=== PATIENT | female | born 1945 | race Caucasian/White ===

== ENCOUNTER 2021-06-15 15:01 | Emergency (ER) | payer OTHER, MEDICARE, MEDICAID ==
[2021-06-15] MEDS ORDERED: Lorazepam 1 MG TAB ONE (16:09)
[2021-06-15] MEDS ORDERED: Gabapentin 300 MG CAP ONE (16:20)
[2021-06-15] MEDS ORDERED: Dexamethasone 4 MG TAB ONE (17:35)
== END 2021-06-15 19:20 | disposition home or self-care (01) ==
LOC: CSHERS 15:01
DX: S10.93XA Contusion of unspecified part of neck, initial encounter (principal); G62.9 Polyneuropathy, unspecified; I10 Essential (primary) hypertension; E78.00 Pure hypercholesterolemia, unspecified; V47.0XXA Car driver injured in collision with fixed or stationary object in nontraffic accident, initial encounter; Z95.0 Presence of cardiac pacemaker
CPT/HCPCS: 70450; 72125; J8540

== ENCOUNTER 2022-06-03 19:40 | Emergency (ER) | payer OTHER, MEDICARE ==
[2022-06-03] MEDS ORDERED: Acetaminophen 500 MG TAB ONE (22:05)
[2022-06-03] MEDS ORDERED: Bacitracin 1 PK ONE (22:11)
[2022-06-03] MEDS ORDERED: Doxycycline 100 MG CAP PO SCH (23:30)
[2022-06-03] MEDS ORDERED: Boostrix 0.5 ML (Tdap) VIAL (>/=7 yrs of age) ONE (23:40)
== END 2022-06-04 00:08 | disposition home or self-care (01) ==
LOC: CSHERS 19:40
DX: S40.022A Contusion of left upper arm, initial encounter (principal); S30.0XXA Contusion of lower back and pelvis, initial encounter; S10.96XA Insect bite of unspecified part of neck, initial encounter; W06.XXXA Fall from bed, initial encounter; W57.XXXA Bitten or stung by nonvenomous insect and other nonvenomous arthropods, initial encounter; J44.9 Chronic obstructive pulmonary disease, unspecified
CPT/HCPCS: 72072; 72100; 90471; 90715

== ENCOUNTER 2022-06-20 12:15 | Outpatient (CLI) | payer MEDICARE, OTHER, MEDICAID | END 2022-06-20 12:16 | disposition home or self-care (01) | LOC: CSHRAD 12:15 | PROVIDERS: ATTEND Physician Assistant | DX: M54.12 Radiculopathy, cervical region (principal); M54.16 Radiculopathy, lumbar region; R29.898 Other symptoms and signs involving the musculoskeletal system; Z98.1 Arthrodesis status; M48.02 Spinal stenosis, cervical region; M47.812 Spondylosis without myelopathy or radiculopathy, cervical region; M47.816 Spondylosis without myelopathy or radiculopathy, lumbar region; Z98.890 Other specified postprocedural states | CPT/HCPCS: 62305; 72050; 72126; 72132 ==

== ENCOUNTER 2022-07-01 12:32 | Emergency (ER) | payer MEDICARE, OTHER, MEDICAID ==
[2022-07-01] MEDS ORDERED: Ondansetron PF 4 MG/2 ML Vial ONE (13:22)
[2022-07-01] MEDS ORDERED: Morphine 4 MG/ML VIAL ONE (13:22)
[2022-07-01 13:46] LABS: #Basophils 0.1 10x3/uL (0.0-0.2); #Eosinphils 0.1 10x3/uL (0.0-0.5); #Monocytes 0.3 10x3/uL (0.0-1.1); #Neutrophils 2.7 10x3/uL (1.5-8.4); %Basophils 1.1 % (0.0-2.0); %Eosinophils 1.7 % (0.0-6.0); %Monocytes 4.9 % (0.0-10.0); %Neutrophils 51.1 % (40.0-75.0); Hemoglobin 14.8 g/dL (12.0-15.5); Mean Corpuscular Hemoglobin 29.8 pg (27.0-33.0); Mean Corpuscular Volume 87.5 fl (81.6-98.3); Mean Platelet Volume 11.8 fl (7.4-10.4); Platelet Count 134 10x3/uL (150-450); RBC Distribution Width 13.6 % (11.5-14.5); Red Blood Cell (RBC) Count 4.97 10x6/uL (3.90-5.03); White Blood Cell (WBC) Count 5.1 10x3/uL (3.5-10.5)
[2022-07-01 13:54] LABS: PTT 25.3 sec (22.0-33.0)
[2022-07-01 13:58] LABS: ALT (SGPT) 14 U/L (8-55); AST (SGOT) 23 U/L (5-34); Alkaline Phosphatase 68 U/L (40-110); Anion Gap 11 mmol/L (10-20); BUN (Urea Nitrogen) 12 mg/dL (9.8-20.1); Bilirubin, Total 0.6 mg/dL (0.2-1.2); Calc. Creatinine Clearance 0 mL/min (70-130); Calcium 8.7 mg/dL (7.8-10.44); Carbon Dioxide 20 mmol/L (23-31); Chloride 112 mmol/L (98-107); Estimated GFR 78; Globulin 2.5 g/dL (2.4-3.5); Glucose 85 mg/dL (83-110); Potassium 3.8 mmol/L (3.5-5.1); Protein, Total 6.5 g/dL (5.8-8.1); Sodium 139 mmol/L (136-145)
[2022-07-01 14:50] LABS: Bilirubin Neg (Negative); Blood, Urine Negative (Negative); Clarity Clear (Clear); Glucose, Urine (Dipstick) Normal (Negative); Ketone, Urine Negative (Negative); Leukocyte 25 (Negative); Nitrite Negative (Negative); Protein, Urine (Dipstick) Negative (Neg-Trace); Urobilinogen Normal mg/dL (Less than 2)
[2022-07-01 15:15] LABS: Bacteria/HPF 2+ HPF (None Seen); RBC/HPF 0-3 HPF (0-3); Squamous Epithelial 0-3 HPF (0-3); WBC/HPF 0-3 HPF (0-3)
== END 2022-07-01 15:29 | disposition home or self-care (01) ==
LOC: CSHERS 12:32
DX: M54.50 Low back pain, unspecified (principal); M54.6 Pain in thoracic spine; M25.552 Pain in left hip; J44.9 Chronic obstructive pulmonary disease, unspecified; W18.30XA Fall on same level, unspecified, initial encounter
CPT/HCPCS: 71045; 72128; 72131; 80053; 81003; 81015; 85025; 85610; 85730; 96374; 96375; J2270; J2405

== ENCOUNTER 2022-07-17 13:18 | Emergency (ER) | payer MEDICARE, OTHER, MEDICAID ==
[2022-07-17] MEDS ORDERED: Morphine 4 MG/ML VIAL ONE (14:16)
[2022-07-17 14:38] LABS: SARS-CoV-2 NAA Rapid Test Not Detected (NotDetected)
[2022-07-17 14:59] LABS: ALT (SGPT) 17 U/L (8-55); AST (SGOT) 26 U/L (5-34); Albumin 4.5 g/dL (3.4-4.8); Alkaline Phosphatase 80 U/L (40-110); Anion Gap 14 mmol/L (10-20); BUN (Urea Nitrogen) 11 mg/dL (9.8-20.1); Bilirubin, Total 0.9 mg/dL (0.2-1.2); Calc. Creatinine Clearance 0 mL/min (70-130); Calcium 9.2 mg/dL (7.8-10.44); Carbon Dioxide 20 mmol/L (23-31); Chloride 106 mmol/L (98-107); Estimated GFR 82; Glucose 104 mg/dL (83-110); Lipase 38 U/L (8-78); Potassium 3.9 mmol/L (3.5-5.1); Protein, Total 7.5 g/dL (5.8-8.1); Sodium 136 mmol/L (136-145)
[2022-07-17 15:09] LABS: #Basophils 0.1 10x3/uL (0.0-0.2); #Monocytes 0.2 10x3/uL (0.0-1.1); #Neutrophils 6.5 10x3/uL (1.5-8.4); %Basophils 0.6 % (0.0-2.0); %Eosinophils 0.4 % (0.0-6.0); %Lymphocytes 18.4 % (18.0-47.0); %Monocytes 2.6 % (0.0-10.0); %Neutrophils 77.6 % (40.0-75.0); Hemoglobin 16.5 g/dL (12.0-15.5); Mean Corpuscular HGB CONC 34.2 g/dL (32.0-36.0); Mean Corpuscular Hemoglobin 30.1 pg (27.0-33.0); Mean Corpuscular Volume 88.1 fl (81.6-98.3); Mean Platelet Volume 12.2 fl (7.4-10.4); Platelet Count 156 10x3/uL (150-450); RBC Distribution Width 13.1 % (11.5-14.5); Red Blood Cell (RBC) Count 5.48 10x6/uL (3.90-5.03); White Blood Cell (WBC) Count 8.4 10x3/uL (3.5-10.5)
[2022-07-17 17:54] LABS: Bilirubin Neg (Negative); Blood, Urine 25 (Negative); Clarity Clear (Clear); Glucose, Urine (Dipstick) Normal (Negative); Ketone, Urine 150 mg/dL (Negative); Leukocyte 100 (Negative); Nitrite Negative (Negative); Protein, Urine (Dipstick) 15 mg/dl (Neg-Trace); Specific Gravity, Urine 1.015 (1.005-1.030); Urobilinogen Normal mg/dL (Less than 2); pH, Urine 6.5 (5.0-9.0)
[2022-07-17 18:03] LABS: Bacteria/HPF 1+ HPF (None Seen); RBC/HPF 0-3 HPF (0-3); Renal Epithelial 0-3 HPF (None Seen); Transitional Epithelial 0-3 HPF (None Seen)
[2022-07-17 18:04] LABS: Mucous/LPF Rare LPF (<2+)
[2022-07-17] MEDS ORDERED: Ondansetron PF 4 MG/2 ML Vial ONE (18:39)
[2022-07-17] MEDS ORDERED: Morphine 2 MG/ML VIAL ONE (18:39)
== END 2022-07-17 18:54 | disposition home or self-care (01) ==
LOC: CSHERS 13:18
DX: R11.10 Vomiting, unspecified (principal); J44.9 Chronic obstructive pulmonary disease, unspecified; Z79.899 Other long term (current) drug therapy; Z20.822 Contact with and (suspected) exposure to COVID-19
CPT/HCPCS: 0240U; 80053; 83605; 83690; 84484; 85025; 93005; J2272; 36415; 81003; 81015; 96374; 96375; 96376; J2270; J2405

== ENCOUNTER 2024-03-15 12:26 | Emergency (ER) | payer MEDICARE, OTHER ==
[~2024-03-15 12:26] MED LIST: Iopamidol 370 76% 100 ML VIAL ONE
[2024-03-15 13:08] LABS: Actual Bicarbonate (HCO3v) 25.4 mEq/L (22-28); Analyzer IN Cardio CS ER; Base Excess 1.2 mEq/L (-2 - +2); Calcium, Ionized (venous) 1.17 mmol/L (1.16-1.32); Chloride (VBG) 103 mmol/L (98-106); Critical Notified By: ASANCHEZ; Hematocrit-VBG 48 % (36.0-47.0); Hemoglobin (Hb) 16.4 g/dL (11.7-16.1); Potassium (VBG) 4.17 mmol/L (3.70-5.30); Puncture Site Other Site; RapidComm Collect By LAB.CB1; Sodium 139 mmol/L (133-146)
[2024-03-15 13:13] LABS: #Basophils 0.05 10x3/uL (0.0-0.2); #Eosinphils 0.11 10x3/uL (0.0-0.5); #Monocytes 0.48 10x3/uL (0.0-1.1); #Neutrophils 5.07 10x3/uL (1.5-8.4); %Basophils 0.6 % (0.0-2.0); %Eosinophils 1.3 % (0.0-6.0); %Lymphocytes 30.1 % (18.0-47.0); %Monocytes 5.8 % (0.0-10.0); %Neutrophils 61.8 % (40.0-75.0); Hematocrit 44.5 % (34.9-44.5); Hemoglobin 15.5 g/dL (12.0-15.5); Mean Corpuscular HGB CONC 34.8 g/dL (32.0-36.0); Mean Corpuscular Hemoglobin 30.5 pg (27.0-33.0); Mean Corpuscular Volume 87.4 fL (81.6-98.3); Mean Platelet Volume 11.3 fL (7.4-10.4); Platelet Count 184 10x3/uL (150-450); RBC Distribution Width 13.7 % (11.5-14.5); Red Blood Cell (RBC) Count 5.09 10x6/uL (3.90-5.03); White Blood Cell (WBC) Count 8.2 10x3/uL (3.5-10.5)
[2024-03-15 13:23] LABS: Prothrombin Time 10.9 sec (9.5-12.1)
[2024-03-15] MEDS ORDERED: Ketorolac Tromethamine 30 MG (1 mL) VIAL ONE (13:24)
[2024-03-15 13:29] LABS: ALT (SGPT) 38 U/L (8-55); AST (SGOT) 41 U/L (5-34); Albumin 3.5 g/dL (3.4-4.8); Alkaline Phosphatase 68 U/L (40-110); Anion Gap 12 mmol/L (10-20); BUN (Urea Nitrogen) 16 mg/dL (9.8-20.1); Bilirubin, Total 0.4 mg/dL (0.2-1.2); Calc. Creatinine Clearance 0 mL/min (70-130); Carbon Dioxide 24 mmol/L (23-31); Chloride 105 mmol/L (98-107); Estimated GFR 74; Globulin 3.2 g/dL (2.4-3.5); Glucose 77 mg/dL (83-110); Potassium 4.4 mmol/L (3.5-5.1); Protein, Total 6.7 g/dL (5.8-8.1); Sodium 137 mmol/L (136-145)
[2024-03-15] MEDS ORDERED: Morphine 2 MG/ML VIAL ONE (13:49)
[2024-03-15 14:01] LABS: Bilirubin Neg (Negative); Blood, Urine Negative (Negative); Glucose, Urine (Dipstick) Normal (Negative); Ketone, Urine Negative (Negative); Leukocyte 500 (Negative); Nitrite Negative (Negative); Protein, Urine (Dipstick) 15 mg/dl (Neg-Trace); Urobilinogen Normal mg/dL (Less than 2)
[2024-03-15 14:09] LABS: Amphetamine Not Detected (NotDetected); Barbiturates Screen Not Detected (NotDetected); Benzodiazepine Screen Detected (NotDetected); Cocaine Metabolite Screen Not Detected (NotDetected); Methadone Not Detected (NotDetected); Methamphetamine Not Detected (NotDetected); Opiate Screen Not Detected (NotDetected); Oxycodone Screen Not Detected (NotDetected); Phencyclidine (PCP) Not Detected (NotDetected); THC/Cannabinoid Screen Not Detected (NotDetected); Tricyclic Screen Not Detected (NotDetected)
[2024-03-15 14:12] LABS: Clarity Clear (Clear)
[2024-03-15 14:25] LABS: Bacteria/HPF 3+ HPF (None Seen); CAUTI Indications for Culture Alt mental st,lethar; RBC/HPF 0-3 HPF (0-3); Squamous Epithelial 0-3 HPF (0-3); Urine Culture Reflex No No
[2024-03-15] MEDS ORDERED: Morphine 4 MG/ML VIAL ONE (14:29)
[2024-03-15 15:00] LABS: Acetaminophen Less than 10 mcg/mL (Less than 10); Alcohol Less than 10.0 mg/dL (Less than 10); Salicylate Less than 8.0 mg/dL (Less than 8.0)
[2024-03-15 15:05] LABS: Troponin I 0.039 ng/mL (< 0.028)
[2024-03-15] MEDS ORDERED: cefTRIAXone (ROCEPHIN) 1 GM VIAL ONE (15:23)
[2024-03-15] MEDS ORDERED: Aspirin 325 MG TAB ONE (15:23)
== END 2024-03-15 17:34 | disposition short-term general hospital (02) ==
LOC: CSHERS 12:26
DX: I63.9 Cerebral infarction, unspecified (principal); N39.0 Urinary tract infection, site not specified; R53.1 Weakness; R79.89 Other specified abnormal findings of blood chemistry; J44.9 Chronic obstructive pulmonary disease, unspecified
CPT/HCPCS: 0042T; 70450; 71045; 73502; 80053; 80306; 80307; 81001; 82805; 82962; 83605; 83735; 84484; 85025; 85610; 93005; J0696; J1885; J2272 ×2; 36415; 36416; 96365; 96375; 96376; Q9967

== ENCOUNTER 2025-06-09 17:51 | Inpatient (IN) | payer MEDICARE, OTHER ==
[2025-06-09 19:04] LABS: #Basophils 0.04 10x3/uL (0.0-0.2); #Eosinophils 0.07 10x3/uL (0.0-0.5); #Monocytes 0.58 10x3/uL (0.0-1.1); #Neutrophils 16.68 10x3/uL (1.5-8.4); %Basophils 0.2 % (0.0-2.0); %Eosinophils 0.4 % (0.0-6.0); %Lymphocytes 4.6 % (18.0-47.0); %Monocytes 3.2 % (0.0-10.0); %Neutrophils 91.1 % (40.0-75.0); Hematocrit 44.0 % (34.9-44.5); Hemoglobin 14.8 g/dL (12.0-15.5); Mean Corpuscular Hemoglobin 29.1 pg (27.0-33.0); Mean Corpuscular Volume 86.4 fL (81.6-98.3); Platelet Count 150 10x3/uL (150-450); Red Blood Cell (RBC) Count 5.09 10x6/uL (3.90-5.03); White Blood Cell (WBC) Count 18.32 10x3/uL (3.5-10.5)
[2025-06-09 19:07] LABS: ALT (SGPT) 21 U/L (Less than 34); AST (SGOT) 48 U/L (11-34); Albumin 3.9 g/dL (3.1-4.5); Alkaline Phosphatase 82 U/L (40-110); Anion Gap 18 mmol/L (10-20); BUN (Urea Nitrogen) 16 mg/dL (9.8-20.1); Bilirubin, Total 0.8 mg/dL (0.3-1.2); Calc. Creatinine Clearance 0 mL/min (70-130); Calcium 8.6 mg/dL (7.8-10.44); Carbon Dioxide 14 mmol/L (23-31); Chloride 108 mmol/L (98-107); Globulin 3.8 g/dL (2.4-3.5); Glucose 150 mg/dL (83-110); Magnesium 1.9 mg/dL (1.6-2.6); Potassium 3.8 mmol/L (3.5-5.1); Sodium 136 mmol/L (136-145)
[2025-06-09 20:08] LABS: Glucose, Urine (Dipstick) Normal (Negative); Leukocyte 25 (Negative); Protein, Urine (Dipstick) 15 mg/dl (Neg-Trace); Specific Gravity, Urine 1.010 (1.005-1.030)
[2025-06-09 20:17] LABS: Bacteria/HPF 2+ HPF (None Seen); CAUTI Indications for Culture Dysuria,urgency,freq; Mucous/LPF Rare LPF (<2+); RBC/HPF 0-3 HPF (0-3)
[2025-06-09 20:18] LABS: Urine Culture Reflex No No
[2025-06-09] MEDS ORDERED: cefTRIAXone (ROCEPHIN) 1 GM VIAL ONE (20:25)
[2025-06-09] MEDS ORDERED: Azithromycin 500 MG VIAL ONE (20:26)
[2025-06-09] MEDS ORDERED: Ibuprofen 200 MG TAB ONE (20:39)
[2025-06-09] MEDS ORDERED: Senokot S 8.6-50 MG TAB PO PRN (21:44)
[2025-06-09] MEDS ORDERED: Guaifenesin DM 100-10/5 ML UDCUP PO PRN (21:44)
[2025-06-09 22:51] VITALS: BMI 29.2
[2025-06-09 23:31] LABS: Legionella Urinary Ag Negative (Negative)
[2025-06-09 23:32] LABS: Strep pneumo Urine Ag NEGATIVE (NEGATIVE)
[2025-06-09] MEDS: Ketorolac Tromethamine 30 MG (1 mL) VIAL IVP SCH (23:32)
[2025-06-09] MEDS: Pantoprazole 40 MG VIAL IVP SCH (23:33)
[2025-06-09] MEDS: diphenhydrAMINE 50 MG/ML VIAL IVP SCH (23:33)
[2025-06-09] MEDS: Metoclopramide HCl 10 MG (2 mL) VIAL IVP SCH (23:33)
[2025-06-09] MEDS: Pregabalin 50 MG CAP PO SCH (23:51)
[2025-06-09] MEDS: Topiramate 100 MG TAB PO SCH (23:52)
[2025-06-09] MEDS: ALPRAZolam 0.25 MG TAB PO PRN (23:52)
[2025-06-10 04:58] LABS: Anion Gap 17 mmol/L (10-20); BUN (Urea Nitrogen) 16 mg/dL (9.8-20.1); CK (CPK) 1315 U/L (29-168); Calc. Creatinine Clearance 54 mL/min (70-130); Calcium 8.4 mg/dL (7.8-10.44); Carbon Dioxide 17 mmol/L (23-31); Chloride 111 mmol/L (98-107); Glucose 175 mg/dL (83-110); Magnesium 1.9 mg/dL (1.6-2.6); Potassium 3.5 mmol/L (3.5-5.1); Sodium 141 mmol/L (136-145)
[2025-06-10 05:02] LABS: Hematocrit 39.5 % (34.9-44.5); Hemoglobin 13.7 g/dL (12.0-15.5); Mean Corpuscular Hemoglobin 29.7 pg (27.0-33.0); Mean Corpuscular Volume 85.7 fL (81.6-98.3); Platelet Count 126 10x3/uL (150-450); Red Blood Cell (RBC) Count 4.61 10x6/uL (3.90-5.03); White Blood Cell (WBC) Count 14.50 10x3/uL (3.5-10.5)
[2025-06-10 05:09] LABS: #Basophils Less than 0.03 10x3/uL (0.0-0.2); #Eosinophils Less than 0.03 10x3/uL (0.0-0.5); #Monocytes 0.06 10x3/uL (0.0-1.1); #Neutrophils 13.60 10x3/uL (1.5-8.4); %Basophils 0.1 % (0.0-2.0); %Eosinophils 0.0 % (0.0-6.0); %Lymphocytes 5.3 % (18.0-47.0); %Monocytes 0.4 % (0.0-10.0); %Neutrophils 93.8 % (40.0-75.0)
[2025-06-10] MEDS: Enoxaparin 40 MG (0.4 mL) SYRINGE SC SCH (09:23)
[2025-06-10] MEDS: Pregabalin 25 MG CAP PO SCH (09:26)
[2025-06-10] MEDS: Topiramate 100 MG TAB PO SCH (09:29)
[2025-06-10] MEDS: Ondansetron PF 4 MG/2 ML Vial IVP PRN (09:29)
[2025-06-10] MEDS: Sertraline 100 MG TAB PO SCH (09:31)
[2025-06-10] MEDS: Aspirin 81 mg Enteric Coated Tablet PO SCH (09:34)
[2025-06-10] MEDS: Pantoprazole 40 MG DR.TAB PO SCH (09:34)
[2025-06-10] MEDS: Ezetimibe 10 MG TAB PO SCH (21:01)
[2025-06-11 05:55] LABS: Hematocrit 39.2 % (34.9-44.5); Hemoglobin 13.5 g/dL (12.0-15.5); Mean Corpuscular Hemoglobin 29.2 pg (27.0-33.0); Mean Corpuscular Volume 84.8 fL (81.6-98.3); Red Blood Cell (RBC) Count 4.62 10x6/uL (3.90-5.03); White Blood Cell (WBC) Count 14.21 10x3/uL (3.5-10.5)
[2025-06-11 05:56] LABS: #Basophils 0.04 10x3/uL (0.0-0.2); #Eosinophils 0.04 10x3/uL (0.0-0.5); #Monocytes 0.70 10x3/uL (0.0-1.1); #Neutrophils 10.96 10x3/uL (1.5-8.4); %Basophils 0.3 % (0.0-2.0); %Eosinophils 0.3 % (0.0-6.0); %Lymphocytes 17.0 % (18.0-47.0); %Monocytes 4.9 % (0.0-10.0); %Neutrophils 77.1 % (40.0-75.0)
[2025-06-11 05:58] LABS: Anion Gap 13 mmol/L (10-20); BUN (Urea Nitrogen) 16 mg/dL (9.8-20.1); Calc. Creatinine Clearance 59 mL/min (70-130); Calcium 8.3 mg/dL (7.8-10.44); Carbon Dioxide 19 mmol/L (23-31); Chloride 110 mmol/L (98-107); Glucose 89 mg/dL (83-110); Magnesium 1.8 mg/dL (1.6-2.6); Potassium 3.5 mmol/L (3.5-5.1); Sodium 138 mmol/L (136-145)
[2025-06-11 06:01] LABS: Platelet Count 143 10x3/uL (150-450)
[2025-06-11 06:04] LABS: MDiff Complete? YES
[2025-06-11] MEDS: Calcium Carbonate 500 MG ChewTAB PO PRN (12:27)
[2025-06-11] MEDS ORDERED: Mag-Al 1200 mg/1200 mg/30 ML UDCUP PO PRN (12:38)
[2025-06-11] MEDS: Acetaminophen 325 MG TAB PO PRN (15:55)
[2025-06-11] MEDS: Ketorolac Tromethamine 30 MG (1 mL) VIAL IVP SCH (20:24)
[2025-06-12 05:00] LABS: #Basophils Less than 0.03 10x3/uL (0.0-0.2); #Eosinophils Less than 0.03 10x3/uL (0.0-0.5); #Monocytes 0.52 10x3/uL (0.0-1.1); #Neutrophils 6.55 10x3/uL (1.5-8.4); %Basophils 0.1 % (0.0-2.0); %Eosinophils 0.2 % (0.0-6.0); %Lymphocytes 20.8 % (18.0-47.0); %Monocytes 5.8 % (0.0-10.0); %Neutrophils 72.8 % (40.0-75.0); Hematocrit 44.4 % (34.9-44.5); Hemoglobin 15.4 g/dL (12.0-15.5); Mean Corpuscular Hemoglobin 29.1 pg (27.0-33.0); Mean Corpuscular Volume 83.9 fL (81.6-98.3); Platelet Count 167 10x3/uL (150-450); Red Blood Cell (RBC) Count 5.29 10x6/uL (3.90-5.03); White Blood Cell (WBC) Count 9.00 10x3/uL (3.5-10.5)
[2025-06-12 05:14] LABS: Anion Gap 15 mmol/L (10-20); BUN (Urea Nitrogen) 14 mg/dL (9.8-20.1); Calc. Creatinine Clearance 63 mL/min (70-130); Calcium 8.9 mg/dL (7.8-10.44); Carbon Dioxide 18 mmol/L (23-31); Chloride 105 mmol/L (98-107); Glucose 93 mg/dL (83-110); Magnesium 1.8 mg/dL (1.6-2.6); Potassium 3.5 mmol/L (3.5-5.1); Sodium 134 mmol/L (136-145)
[2025-06-12] MEDS: Promethazine HCl 12.5 MG, Admixture Fee 1 EACH in Sodium Chloride 0.9% 50 ML IVPB PRN (07:29)
[2025-06-12] MEDS: Ketorolac Tromethamine 30 MG (1 mL) VIAL IVP SCH (20:59)
[2025-06-13] MEDS: D5 0.9% NS w/ 20 mEq KCl 1,000 ML IV SCH (12:56)
[2025-06-13] MEDS: Ondansetron PF 4 MG/2 ML Vial IVP SCH (12:56)
[2025-06-13] MEDS ORDERED: cefTRIAXone\\ROCEPHIN 2 GM in Sodium Chloride 0.9% 100 ML IVPB SCH (18:00)
[2025-06-13] MEDS: Topiramate 100 MG TAB PO SCH (20:35)
[2025-06-14 05:06] LABS: #Basophils Less than 0.03 10x3/uL (0.0-0.2); #Eosinophils 0.13 10x3/uL (0.0-0.5); #Monocytes 0.48 10x3/uL (0.0-1.1); #Neutrophils 6.49 10x3/uL (1.5-8.4); %Basophils 0.1 % (0.0-2.0); %Eosinophils 1.6 % (0.0-6.0); %Lymphocytes 14.6 % (18.0-47.0); %Monocytes 5.7 % (0.0-10.0); %Neutrophils 77.6 % (40.0-75.0); Hematocrit 46.0 % (34.9-44.5); Hemoglobin 15.9 g/dL (12.0-15.5); Mean Corpuscular Hemoglobin 29.0 pg (27.0-33.0); Mean Corpuscular Volume 83.9 fL (81.6-98.3); Platelet Count 193 10x3/uL (150-450); Red Blood Cell (RBC) Count 5.48 10x6/uL (3.90-5.03); White Blood Cell (WBC) Count 8.36 10x3/uL (3.5-10.5)
[2025-06-14 05:17] LABS: Anion Gap 11 mmol/L (10-20); BUN (Urea Nitrogen) 17 mg/dL (9.8-20.1); Calc. Creatinine Clearance 63 mL/min (70-130); Calcium 8.7 mg/dL (7.8-10.44); Carbon Dioxide 19 mmol/L (23-31); Chloride 114 mmol/L (98-107); Glucose 157 mg/dL (83-110); Potassium 3.2 mmol/L (3.5-5.1); Sodium 141 mmol/L (136-145)
[2025-06-14] MEDS ORDERED: Electrolyte Replacement Protocol 1 EACH FS SCH (09:30)
[2025-06-14] MEDS: Enoxaparin 40 MG (0.4 mL) SYRINGE SC SCH (09:45)
[2025-06-14] MEDS: Aspirin 81 mg Enteric Coated Tablet PO SCH ×2 (09:46→12:49)
[2025-06-14] MEDS: Pantoprazole 40 MG VIAL IVP SCH (09:46)
[2025-06-14] MEDS ORDERED: Magnesium 2 GM/50 ML(in water) 2 GM in Premix 1 BAG IVPB PRN (09:52)
[2025-06-14] MEDS ORDERED: Potassium Chloride 20 MEQ in Premix 1 BAG IVPB PRN (10:00)
[2025-06-14] MEDS ORDERED: PHOS-NAK 1 PKT PACK PO PRN (10:00)
[2025-06-14] MEDS ORDERED: Nitroglycerin 0.4 MG TAB (25 Tab Bottle) SL PRN (10:59)
[2025-06-14 11:51] LABS: Troponin I Less than 0.010 ng/mL (< 0.028)
[2025-06-14] MEDS: Carvedilol 3.125 MG TAB PO SCH ×2 (12:49→17:48)
[2025-06-14] MEDS: Nitroglycerin 0.4 MG TAB (25 Tab Bottle) ONE (12:49)
[2025-06-14 15:25] LABS: Troponin I Less than 0.010 ng/mL (< 0.028)
[2025-06-14] MEDS: Magnesium 2 GM/50 ML(in water) 2 GM in Premix 1 BAG IVPB SCH (19:40)
[2025-06-14] MEDS: diphenhydrAMINE 50 MG/ML VIAL IVP SCH (21:08)
[2025-06-14] MEDS: valACYclovir 500 MG TAB PO SCH (21:14)
[2025-06-15 06:47] LABS: #Basophils 0.04 10x3/uL (0.0-0.2); #Eosinophils 0.10 10x3/uL (0.0-0.5); #Monocytes 0.55 10x3/uL (0.0-1.1); #Neutrophils 5.76 10x3/uL (1.5-8.4); %Basophils 0.5 % (0.0-2.0); %Eosinophils 1.2 % (0.0-6.0); %Lymphocytes 24.4 % (18.0-47.0); %Monocytes 6.4 % (0.0-10.0); %Neutrophils 67.0 % (40.0-75.0); Hematocrit 44.2 % (34.9-44.5); Hemoglobin 14.9 g/dL (12.0-15.5); Mean Corpuscular Hemoglobin 28.9 pg (27.0-33.0); Mean Corpuscular Volume 85.7 fL (81.6-98.3); Platelet Count 181 10x3/uL (150-450); Red Blood Cell (RBC) Count 5.16 10x6/uL (3.90-5.03); White Blood Cell (WBC) Count 8.59 10x3/uL (3.5-10.5)
[2025-06-15 07:03] LABS: Anion Gap 11 mmol/L (10-20); BUN (Urea Nitrogen) 8 mg/dL (9.8-20.1); Calc. Creatinine Clearance 65 mL/min (70-130); Calcium 8.3 mg/dL (7.8-10.44); Carbon Dioxide 18 mmol/L (23-31); Chloride 113 mmol/L (98-107); Glucose 105 mg/dL (83-110); Magnesium 2.1 mg/dL (1.6-2.6); Potassium 3.6 mmol/L (3.5-5.1); Sodium 138 mmol/L (136-145)
[2025-06-15] MEDS: Losartan 50 MG TAB PO SCH (09:29)
[2025-06-15 16:37] LABS: Magnesium 3.5 mg/dL (1.6-2.6)
[2025-06-15] MEDS: Losartan 25 MG TAB PO SCH (20:44)
[2025-06-16] MEDS: Benzocaine/Menthol 1 LOZ LOZ PO PRN (03:15)
[2025-06-16 06:28] LABS: #Basophils 0.06 10x3/uL (0.0-0.2); #Eosinophils 0.22 10x3/uL (0.0-0.5); #Monocytes 0.61 10x3/uL (0.0-1.1); #Neutrophils 6.18 10x3/uL (1.5-8.4); %Basophils 0.7 % (0.0-2.0); %Eosinophils 2.4 % (0.0-6.0); %Lymphocytes 22.7 % (18.0-47.0); %Monocytes 6.6 % (0.0-10.0); %Neutrophils 67.3 % (40.0-75.0); Hematocrit 43.9 % (34.9-44.5); Hemoglobin 14.9 g/dL (12.0-15.5); Mean Corpuscular Hemoglobin 29.2 pg (27.0-33.0); Mean Corpuscular Volume 85.9 fL (81.6-98.3); Platelet Count 177 10x3/uL (150-450); Red Blood Cell (RBC) Count 5.11 10x6/uL (3.90-5.03); White Blood Cell (WBC) Count 9.18 10x3/uL (3.5-10.5)
[2025-06-16 06:47] LABS: ALT (SGPT) 23 U/L (Less than 34); AST (SGOT) 33 U/L (11-34); Albumin 3.1 g/dL (3.1-4.5); Alkaline Phosphatase 66 U/L (40-110); Anion Gap 11 mmol/L (10-20); BUN (Urea Nitrogen) 6 mg/dL (9.8-20.1); Bilirubin, Total 0.6 mg/dL (0.3-1.2); CK (CPK) 57 U/L (29-168); Calc. Creatinine Clearance 65 mL/min (70-130); Calcium 8.1 mg/dL (7.8-10.44); Carbon Dioxide 16 mmol/L (23-31); Chloride 110 mmol/L (98-107); Globulin 3.6 g/dL (2.4-3.5); Glucose 111 mg/dL (83-110); Potassium 4.0 mmol/L (3.5-5.1); Sodium 133 mmol/L (136-145)
[2025-06-16] MEDS: Pantoprazole 40 MG DR.TAB PO SCH (09:37)
[2025-06-16 14:44] VITALS: BMI 29.2
[2025-06-16 17:35] VITALS: BP 154/78; TEMP 97.5
[2025-06-16] MEDS ORDERED: Amoxicillin/Potassium Clav 875 MG TAB PO SCH (21:00)
== END 2025-06-16 18:20 | disposition home or self-care (01) | DRG 178 ==
LOC: CSHERS 17:51 → CSHTELE 21:44
PROVIDERS: ADMIT Student in an Organized Health Care Education/Training Program; ATTEND Internal Medicine
PROC: 5A09357 Assistance with Respiratory Ventilation, Less than 24 Consecutive Hours, Continuous Positive Airway Pressure (ICD-10-PCS; principal; 2025-06-10)
PROC: 3E03329 Introduction of Other Anti-infective into Peripheral Vein, Percutaneous Approach (ICD-10-PCS; 2025-06-11)
PROC: 5A09357 Assistance with Respiratory Ventilation, Less than 24 Consecutive Hours, Continuous Positive Airway Pressure (ICD-10-PCS; 2025-06-14)
PROC: 5A09357 Assistance with Respiratory Ventilation, Less than 24 Consecutive Hours, Continuous Positive Airway Pressure (ICD-10-PCS; 2025-06-15)
DX: J69.0 Pneumonitis due to inhalation of food and vomit (principal); E87.20 Acidosis, unspecified; N39.0 Urinary tract infection, site not specified; F33.9 Major depressive disorder, recurrent, unspecified; M62.82 Rhabdomyolysis; G47.33 Obstructive sleep apnea (adult) (pediatric); Z88.5 Allergy status to narcotic agent; Z88.8 Allergy status to other drugs, medicaments and biological substances; Z91.040 Latex allergy status; Z79.899 Other long term (current) drug therapy; I10 Essential (primary) hypertension; E78.5 Hyperlipidemia, unspecified; I25.10 Atherosclerotic heart disease of native coronary artery without angina pectoris; Z98.890 Other specified postprocedural states; F41.9 Anxiety disorder, unspecified; E03.9 Hypothyroidism, unspecified; G89.29 Other chronic pain; G43.909 Migraine, unspecified, not intractable, without status migrainosus; Z95.0 Presence of cardiac pacemaker; R07.9 Chest pain, unspecified; B00.1 Herpesviral vesicular dermatitis; Z79.890 Hormone replacement therapy; Z79.82 Long term (current) use of aspirin
CPT/HCPCS: 36415; 70450; 70460; 71045; 74176; 74250; 80048; 80053; 81001; 82550; 83605; 83735; 84100; 84145; 84484; 85025; 86140; 87040; 87077; 87149; 87428; 87449; 87899; 94640; 94760; 96374; 96375; J0295; J0456; J0696; J1200; J1650; J1885; J2405; J2470; J2543; J2550; J2765; J2919; J3475; J3480; J7120